=== PATIENT | female | born 1950 | race African-American/Black ===

== ENCOUNTER 2019-02-15 14:31 | Emergency (ER) | payer MEDICARE, MEDICAID ==
[~2019-02-15] VITALS: Ht 165.1 cm; Wt 98.9 kg
[~2019-02-15 14:31] MED LIST: ALBUTEROL SULF8.5 GM INH; AMLODIPINE BESY10 MG PO; AMOXICILLIN500 MG ORAL; ASPIR 8181 MG PO; COZAAR50 MG PO; HYDRALAZINE HCL25 M1 PO; LOPRESSOR50 M1 PO; MOTRIN800 MG PO; NORCO 5/3251 TAB ORAL; OMEPRAZOLE40 M1 ORAL; PENICILLIN V P500 MG PO; PREVACID30 MG PO; VICODIN 5-5001 EACH PO
[2019-02-15 14:40] VITALS: BP 138/77
[2019-02-15] MEDS ORDERED: Ipratropium 0.02% Inh Soln 2.5ml UD HHN ONE (15:15)
[2019-02-15] MEDS ORDERED: Albuterol ud Inhalation HHN ONE (15:15)
[2019-02-15 15:45] LABS: BASOPHILS % (AUTO) 1.6 % (0.0-2.0); HEMATOCRIT 35.8 % (37.0-47.0); HEMOGLOBIN 11.4 G/DL (12.0-16.0); LYMPHOCYTES % (AUTO) 38.1 % (20.0-45.0); MEAN CORPUSCULAR VOLUME 87 FL (80-99); MONOCYTES % (AUTO) 6.3 % (1.0-10.0); PLATELET COUNT 260 K/UL (150-450); RED BLOOD COUNT 4.13 M/UL (4.20-5.40); RED CELL DISTRIBUTION WIDTH 12.7 % (11.6-14.8); WHITE BLOOD COUNT 8.3 K/UL (4.8-10.8)
--- NOTE | 2019-02-15 15:49 | Diagnostic Imaging Report ---
Indication: Shortness of breath Technique: One view of the chest Comparison: February 24, 2016 Findings: The heart is enlarged. Lungs and pleural spaces are clear. No significant interim change Impression: No acute process Cardiomegaly
[2019-02-15 15:57] LABS: ANION GAP 10 mmol/L (5-15); BLOOD UREA NITROGEN 17 mg/dL (7-18); CALCIUM 8.6 MG/DL (8.5-10.1); CARBON DIOXIDE 25 MMOL/L (21-32); CHLORIDE 104 MMOL/L (98-107); CREATININE 1.4 MG/DL (0.55-1.30); POTASSIUM 4.2 MMOL/L (3.5-5.1); SODIUM 139 MMOL/L (136-145)
[2019-02-15 16:10] LABS: ALANINE AMINOTRANSFERASE 17 U/L (12-78); ALBUMIN 3.7 G/DL (3.4-5.0); ALBUMIN/GLOBULIN RATIO 0.9 (1.0-2.7); ALKALINE PHOSPHATASE 130 U/L (46-116); ASPARTATE AMINO TRANSFERASE 15 U/L (15-37); BILIRUBIN,TOTAL 0.5 MG/DL (0.2-1.0); CKMB 0.8 NG/ML (0.0-3.6); CREATINE KINASE 80 U/L (26-308)
[2019-02-15] MEDS ORDERED: Solu-MEDROL 125mg Inj IVP ONE (16:15)
[2019-02-15] MEDS ORDERED: Ketorolac 30mg Inj IV ONE (16:30)
[2019-02-15] MEDS ORDERED: PREDNISONE20 MG ORAL (16:31)
[2019-02-15] MEDS ORDERED: ALBUTEROL SULF8.5 GM INH (16:31)
[2019-02-15] MEDS ORDERED: CLARITIN10 M1 ORAL (16:31)
[2019-02-15] MEDS ORDERED: Acetaminophen 500mg (ES) tab ORAL ONE (16:45)
[2019-02-15 16:49] VITALS: BP 136/77
[2019-02-15 17:05] VITALS: BP 136/77
--- NOTE | 2019-02-15 17:07 | NUR ---
ED Nurse Note: pt walked in c/o sob labs sent pt medicated . meseret cabrera done pt given copies of labs and ekg ambulated out of er with wrong and steady gait.
--- NOTE | 2019-02-15 17:45 | Emergency Room Report ---
History of Present Illness General Chief Complaint: Dyspnea/Respdistress Source: Patient Present Illness HPI Female presented after increased cough and difficulty with breathing. Patient had previous history of smoking. She reports having increased nonproductive cough. She reports having prior episodes of drug abuse in the past. She states that she has been having increased pain to the throat. This did not radiate. Pain is constant in nature. This is been going on for several weeks. She denies any dental procedures. Patient had quit smoking she reports having onset of symptoms for the past 2-3 days.Patient denies any leg pain or swelling. Allergies: Coded Allergies: No Known Allergies (Verified Allergy, Unknown, 05/11/09) Patient History Past Medical History: see triage record Last Menstrual Period: na Reviewed Nursing Documentation: PMH: Agreed; PSxH: Agreed Nursing Documentation-PMH Past Medical History: No History, Except For Hx Cardiac Problems: Yes - ENLARGED HEART Hx Hypertension: Yes Hx Gastrointestinal Problems: Yes - gall stones Review of Systems All Other Systems: negative except mentioned in HPI Physical Exam Vital Signs Date Time Temp Pulse Resp B/P (MAP) Pulse Ox O2 Delivery O2 Flow Rate FiO2 02/15/19 14:39 97.9 76 20 138/77 95 Room Air 02/15/19 15:19 21 Sp02 EP Interpretation: reviewed, normal General Appearance: normal inspection, well appearing, no apparent distress, alert, GCS 15, non-toxic, obese Head: atraumatic ENT: normal ENT inspection, hearing grossly normal, normal voice Neck: normal inspection, full range of motion, supple, no bony tend Respiratory: normal inspection, no respiratory distress, no retraction, wheezing Cardiovascular #1: regular rate, rhythm, no edema Gastrointestinal: normal inspection, normal bowel sounds, non tender, soft, no guarding, no hernia Genitourinary: no CVA tenderness Musculoskeletal: normal inspection, back normal, normal range of motion Neurologic: normal inspection, alert, oriented x3, responsive, [employer] III-XII nml as tested, speech normal Psychiatric: normal inspection, judgement/insight normal, mood/affect normal Skin: normal inspection, normal color, no rash Medical Decision Making Diagnostic Impression: Primary Impression: Bronchitis ER Course Patient presented for increased difficulty breathing. Differential diagnosis included but was not limited to bronchitis, pneumonia, pulmonary embolism, pericarditis, asthma, foreign body. Because of complexity of patient's case laboratory testing and imaging studies were ordered. Laboratory studies are unremarkable.Patient was given prescription for medications for symptomatic treatment. EKG interpreted by me showed normal sinus rhythm without acute ST or T wave changes. Chest x-ray 1 view read by radiology showed no acute process and cardiomegaly this is unchanged from the patient's previous x-ray. Left bundle branch block was noted. Patient's troponin was noted to be negative.The patient is advised to follow up with primary care doctor in 1-2 days. Patient is advised to return if any worsening condition or if any changes in status that are concerning. This report is dictated with [employer] senior asp net developer software which may occasionally lead to discrepancies related to use of this software. Labs Test 02/15/19 15:25 White Blood Count 8.3 K/UL (4.8-10.8) Red Blood Count 4.13 M/UL (4.20-5.40) Hemoglobin 11.4 G/DL (12.0-16.0) Hematocrit 35.8 % (37.0-47.0) Mean Corpuscular Volume 87 FL (80-99) Mean Corpuscular Hemoglobin 27.6 PG (27.0-31.0) Mean Corpuscular Hemoglobin Concent 31.9 G/DL (32.0-36.0) Red Cell Distribution Width 12.7 % (11.6-14.8) Platelet Count 260 K/UL (150-450) Mean Platelet Volume 9.3 FL (6.5-10.1) Neutrophils (%) (Auto) 47.0 % (45.0-75.0) Lymphocytes (%) (Auto) 38.1 % (20.0-45.0) Monocytes (%) (Auto) 6.3 % (1.0-10.0) Eosinophils (%) (Auto) 7.0 % (0.0-3.0) Basophils (%) (Auto) 1.6 % (0.0-2.0) Sodium Level 139 MMOL/L (136-145) Potassium Level 4.2 MMOL/L (3.5-5.1) Chloride Level 104 MMOL/L (98-107) Carbon Dioxide Level 25 MMOL/L (21-32) Anion Gap 10 mmol/L (5-15) Blood Urea Nitrogen 17 mg/dL (7-18) Creatinine 1.4 MG/DL (0.55-1.30) Estimat Glomerular Filtration Rate 45.5 mL/min (>60) Glucose Level 80 MG/DL (74-106) Calcium Level 8.6 MG/DL (8.5-10.1) Total Bilirubin 0.5 MG/DL (0.2-1.0) Aspartate Amino Transf (AST/SGOT) 15 U/L (15-37) Alanine Aminotransferase (ALT/SGPT) 17 U/L (12-78) Alkaline Phosphatase 130 U/L (46-116) Total Creatine Kinase 80 U/L (26-308) Creatine Kinase MB 0.8 NG/ML (0.0-3.6) Creatine Kinase MB Relative Index 1.0 Troponin I 0.000 ng/mL (0.000-0.056) Pro-B-Type Natriuretic Peptide 100 pg/mL (0-125) Total Protein 8.0 G/DL (6.4-8.2) Albumin 3.7 G/DL (3.4-5.0) Globulin 4.3 g/dL Albumin/Globulin Ratio 0.9 (1.0-2.7) Lipase 275 U/L (73-393) EKG Diagnostic Results Rate: normal Rhythm: NSR ST Segments: no acute changes Last Vital Signs Date Time Temp Pulse Resp B/P (MAP) Pulse Ox O2 Delivery O2 Flow Rate FiO2 02/15/19 17:05 97.9 17 136/77 98 Room Air 21 02/15/19 16:45 70 Status: improved Disposition: HOME, SELF-CARE Condition: Stable Scripts Loratadine (CLARITIN) 10 Mg Tab.rapdis 10 MG ORAL DAILY, #30 TAB Prov: Vasile Allen MD 02/15/19 Albuterol Sulfate* (ALBUTEROL SULFATE MDI*) 8.5 Gm Hfa.aer.ad 2 PUFF INH Q4H PRN for cough/wheezing, #1 EA 0 Refills Prov: Vasile Allen MD 02/15/19 Prednisone* (PREDNISONE*) 20 Mg Tablet 40 MG ORAL DAILY, #10 TAB Prov: Vasile Allen MD 02/15/19 Referrals: NON PHYSICIAN (PCP) Patient Instructions: Acute Bronchitis Vasile Allen MD Feb 15, 2019 17:45
--- NOTE | 2019-02-16 17:28 | Cardiology Report ---
APPROVED REPORT EKG Measurement Heart [id number] Normal sinus rhythm Left bundle branch block Abnormal ECG
== END 2019-02-15 17:08 | disposition home or self-care (01) ==
LOC: EMR 15:00
DX: J40 Bronchitis, not specified as acute or chronic (principal); I10 Essential (primary) hypertension
CPT/HCPCS: 36415; 71045; 80053; 82550; 82553; 83690; 83880; 84484; 85025; 93005; 94640; 94664; 96374; 96375; 99284; J1885; J2930